=== PATIENT | female | born 2000 | race Caucasian/White ===

== ENCOUNTER 2023-08-06 16:05 | Emergency (ER) | payer MEDICAID ==
[~2023-08-06] VITALS: Ht 162.6 cm; Wt 83.3 kg
[2023-08-06 16:10] VITALS: BP 127/63; PULSE 84; RESP 18; O2SAT 98
[2023-08-06 17:14] VITALS: TEMP 98.9
== END 2023-08-06 17:16 | disposition home or self-care (01) ==
LOC: ER 16:06
DX: S83.92XA Sprain of unspecified site of left knee, initial encounter (principal); X58.XXXA Exposure to other specified factors, initial encounter; Y93.89 Activity, other specified; Y92.89 Other specified places as the place of occurrence of the external cause; Y99.8 Other external cause status
CPT/HCPCS: 29505; 73564; 99283